=== PATIENT | female | born 1985 | race Caucasian/White ===

== ENCOUNTER 2021-04-10 04:59 | Emergency (ER) | payer OTHER ==
[2021-04-10] MEDS ORDERED: Ondansetron 4 MG/2 ML SDV IVPUSH ONE (05:03)
[2021-04-10] MEDS ORDERED: Ondansetron 4 MG Tab.DIS PO ONE (05:26)
[2021-04-10] MEDS ORDERED: Ketorolac 60 MG/2 ML SDV IVPUSH ONE (05:29)
[2021-04-10] MEDS ORDERED: Sodium Chloride 0.9% 500 ML IV ONE ×3 (05:30→15:30)
[2021-04-10] MEDS ORDERED: Morphine 2 MG/ML SYRINGE IVPUSH ONE ×2 (05:49→06:49)
[2021-04-10] MEDS ORDERED: NS + KCl 20mEq/L 1,000 ML ONE (06:22)
[2021-04-10] MEDS ORDERED: Sodium Chloride 0.9% 10 ML Syringe FLUSH PRN (06:25)
[2021-04-10] MEDS ORDERED: NS + KCl 20mEq/L 1,000 ML IV SCH (06:30)
[2021-04-10] MEDS ORDERED: Iopamidol 612 MG/ML 50 ML SDV IV SCH (06:30)
[2021-04-10] MEDS ORDERED: Lactated Ringers 1,000 ML IV SCH (08:45)
[2021-04-10] MEDS ORDERED: Ondansetron 4 MG Tab.DIS ONE (11:00)
[2021-04-10] MEDS ORDERED: traMADol 50 MG Tab ONE (11:00)
== END 2021-04-10 11:10 | disposition home or self-care (01) ==
LOC: EDBD 04:59 → LB.ED 04:59
DX: U07.1 COVID-19 (principal); Z88.2 Allergy status to sulfonamides
CPT/HCPCS: 36415; 74177; 80053; 83615; 83690; 84703; 85025; 86140; 96365; 96375; 96376; 99284-25; A9270-GY; J1885; J2270; J2405; J3480; J7040; J7120; Q0162; U0002